=== PATIENT | female | born 1950 | race Caucasian/White ===

== ENCOUNTER 2017-01-12 09:02 | Day surgery (SDC) | payer MEDICARE, BC ==
[~2017-01-12 09:02] MED LIST: Acetaminophen TAB* 325 MG PO PRN; Buffered Lidocaine 0.9% SYRIN* 5 ML/SYR SYRINGE INTRADERM ONE
[2017-01-12] MEDS ORDERED: Midazolam* 1 MG/ML 5 ML VIAL (5 MG) ONE (10:29)
[2017-01-12 12:43] VITALS: BP 108/63
[2017-01-12] MEDS ORDERED: Povidone Iodine 5% OPTH* 30 ML BTL ONE (14:16)
[2017-01-12] MEDS ORDERED: Ketorolac 0.5% OPHTH (NF) 0.5 % 5 ML BTL ONE (14:16)
[2017-01-12] MEDS ORDERED: Phenylephrine 2.5% OPTH.SOL* 2 ML BTL ONE (14:16)
[2017-01-12] MEDS ORDERED: Proparacaine 0.5% OPHTH.SOL* 15 ML BTL ONE (14:16)
[2017-01-12] MEDS ORDERED: Neomycin/Polymy/Dex OPTH.SUSP* MAXITROL 0.1% 5 ML ONE (14:16)
[2017-01-12] MEDS ORDERED: Buffered Lidocaine 0.9% SYRIN* 5 ML/SYR SYRINGE ONE (14:16)
[2017-01-12] MEDS ORDERED: Lidocaine 1% MPF* 2 ML VIAL ONE (14:16)
[2017-01-12] MEDS ORDERED: acetaZOLAMIDE TAB* 250 MG ONE (14:16)
[2017-01-12] MEDS ORDERED: Lidocaine 2% EPI 1:200000 MPF* 20 ML VIAL ONE (14:16)
[2017-01-12] MEDS ORDERED: Cyclopentolate 1% OPTH.SOL* 2 ML BTL ONE (14:16)
--- NOTE | 2017-01-13 04:55 | OP ---
DATE OF OPERATION: 01/12/17 [facility] DATE OF : 52 SURGEON: Dejuan Moss M.D. PREOPERATIVE DIAGNOSIS: Cataract, left eye. POSTOPERATIVE DIAGNOSIS: Cataract, left eye. OPERATIVE PROCEDURE: Phacoemulsification, left eye, with IOL. DESCRIPTION OF PROCEDURE: The patient was brought to the operating room after being given 1/2% Alcaine with epinephrine drops in the preoperative area. The eye was prepped and draped in the usual sterile fashion. Sterile drape and eyelid speculum were placed. Again, topical 1/2% Alcaine with epinephrine was given. A paracentesis incision was made at the 3 o'clock position with the No.75 blade. Clear cornea incision 2.2 x 2.2-mm was created at the 6 o'clock position starting at the anterior limbus using the 2.2-mm keratome. The anterior chamber was irrigated with 0.4 mL of 1% non-preservative intracameral lidocaine and filled with DisCoVisc. A capsulorrhexis was completed using the cystotome and the Utrata forceps. Hydrodissection was performed with balanced salt solution. The lens nucleus was removed with the Phacoemulsification handpiece without incident. Cortex was removed with the irrigation-aspiration handpiece. The capsular bag was re-inflated using DisCoVisc and an SN60WF 27.5 implant was inserted with the shooter. The irrigation-aspiration handpiece was used to remove all residual DisCoVisc. The eye was refilled with balanced salt solution and the wound checked and found to be watertight. Topical Maxitrol drops were given. [id number]/[facility] #: [id number] [facility]
== END 2017-01-12 12:39 | disposition home or self-care (01) ==
LOC: OREAST 09:02
PROVIDERS: ATTEND Specialist
DX: H25.812 Combined forms of age-related cataract, left eye (principal); Z96.1 Presence of intraocular lens; H43.813 Vitreous degeneration, bilateral; Z79.82 Long term (current) use of aspirin; Z88.0 Allergy status to penicillin; E03.9 Hypothyroidism, unspecified; I73.00 Raynaud's syndrome without gangrene; M34.1 CR(E)ST syndrome; F17.210 Nicotine dependence, cigarettes, uncomplicated; D50.8 Other iron deficiency anemias; E78.4 Other hyperlipidemia; F41.1 Generalized anxiety disorder; R23.8 Other skin changes
CPT/HCPCS: A9270-GY; J2250; V2632

== ENCOUNTER 2017-10-13 12:44 | Emergency (ER) | payer MEDICARE, BC ==
[2017-10-13] MEDS ORDERED: NS 0.9% 1000 ML* 1,000 ML IV ONE ×2 (15:18→17:32)
--- NOTE | 2017-10-13 15:23 | ED ---
GI/ HPI - HPI Summary HPI Summary: This is scribe Elie Guadarrama documenting for attending Jose M Pritchett MD. This patient is a 67 year old F presenting to [facility] with a chief complaint of inability to eat or drink since 10/02/2017. Patient reports sporadic sharp abdominal pain (every 10-15 minutes), watery diarrhea, weakness, losing weight, nausea, and passing gas only once in the past 6 days. Patient denies vomiting. She has had a hernia in the past. I, Dr. Pritchett, personally performed the services described in this documentation as scribed in my presence, and it is both accurate and complete. - History of Current Complaint Chief Complaint: EDNauseaVomitDiarrh Time Seen by Provider: 10/13/17 15:13 Stated Complaint: ABD PAIN Hx Obtained From: Patient Onset/Duration: Started Days Ago - 10/02/2017 Timing: Intermittent - 10-15 minute episodes of pain Pain Intensity: 0 Pain Characteristics: Sharp Associated Signs and Symptoms: Positive: Weakness, Nausea, Diarrhea - watery, Other: - sporadic sharp abdominal pain (every 10-15 minutes), losing weight, and passing gas only once in the last 6 days. - Allergy/Home Medications Allergies/Adverse Reactions: Allergies Allergy/AdvReac Type Severity Reaction Status Date / Time Penicillins Allergy Rash And Verified 10/13/17 15:09 Itching Home Medications: Home Medications Atorvastatin* [Lipitor 40 MG*] 40 mg PO DAILY 10/13/17 [History Confirmed ] Beet Root 1000 Mg 1 cap PO BID 10/13/17 [History Confirmed 10/13/17] Cholecalciferol TAB* [Vitamin D TAB*] 1,000 unit PO DAILY 10/13/17 [History Confirmed 10/13/17] Diltiazem CD CAP* [Cardizem CD CAP*] 120 mg PO EVERY OTHER DAY 10/13/17 [ History Confirmed 10/13/17] Ferrous Sulfate TAB* 325 mg PO EVERY OTHER DAY 10/13/17 [History Confirmed 10/13] Ibuprofen TAB* [Motrin TAB* 600 MG] 600 mg PO TID PRN 10/13/17 [History Confirmed 10/13/17] Levothyroxine TAB* [Synthroid TAB*] 50 mcg PO DAILY 10/13/17 [History Confirmed 10/13/17] Magnesium Oxide [Magnesium] 250 mg PO DAILY 10/13/17 [History Confirmed 10/13/17 ] Metoprolol Succinate XL TAB* [Toprol XL TAB*] 25 mg PO DAILY 10/13/17 [History Confirmed 10/13/17] Mometasone Furoate [Elocon] 0.1 % TOPICAL TID PRN 10/13/17 [History Confirmed ] PMH/Surg Hx/FS Hx/Imm Hx Endocrine/Hematology History: Reports: Hx Thyroid Disease - HX OF PARTIAL THYROIDECTOMY, Hx Anemia - IRON INFUSION- STATES WILL HAVE ON 12/30/16 Denies: Hx Diabetes Cardiovascular History: Reports: Hx Peripheral Vascular Disease - STENTS PLACED TO BOTH GROINS-~5-6 YEARS AGO-DONE IN [place], Other Cardiovascular Problems/ Disorders - SVT-on meds Denies: Hx Hypertension - cardiac meds for Reynauds/CREST syndrome, Hx Pacemaker/ICD GI History: Reports: Hx Gastroesophageal Reflux Disease - HX OF, Other GI Disorders - gerd History: Denies: Hx Dialysis, Hx Renal Disease Musculoskeletal History: Reports: Hx Arthritis, Hx Rheumatoid Arthritis Denies: Hx Osteoporosis Sensory History: Reports: Hx Cataracts - BILATERAL, Hx Contacts or Glasses - INSTRUCTS GIVEN Denies: Hx Hearing Aid Opthamlomology History: Reports: Hx Cataracts - BILATERAL, Hx Contacts or Glasses - INSTRUCTS GIVEN Psychiatric History: Reports: Hx Anxiety - HX OF - PRN MEDICATION FOR - Cancer History Hx Chemotherapy: No Hx Radiation Therapy: No - Surgical History Surgery Procedure, Year, and Place: left elbow calcium build up removed 2005; stents to bilat iliac veins 05/2011; partial thyroidectomy "years ago". hernia repair Hx Anesthesia Reactions: Yes - NAUSEA AND VOMITING- WITH ELBOW SURGERY Infectious Disease History: No Infectious Disease History: Reports: Hx Hepatitis - HX OF IN THE 1969'S Denies: Traveled Outside the [place] in Last 30 Days - Family History Known Family History: Positive: Cardiac Disease - Father of [place] at 39, Other - Cancer - Social History Alcohol Use: None Substance Use Type: Reports: None Smoking Status (MU): Light Every Day Tobacco Smoker Type: Cigarettes Amount Used/How Often: 6-8 cig/day Have You Smoked in the Last Year: Yes Review of Systems Positive: Other - losing weight. Negative: Fever Positive: Abdominal Pain - intermittent sharp abdominal pain (lasting 10-15 minutes), Diarrhea - watery, Nausea, Other - Inability to eat or drink, passing gas only once in the past 6 days All Other Systems Reviewed And Are Negative: Yes Physical Exam - Summary Physical Exam Summary: VITAL SIGNS: Reviewed. GENERAL: Patient is a well-developed and nourished FEMALE who is lying comfortable in the stretcher. Patient is not in any acute respiratory distress. HEAD AND FACE: No signs of trauma. No ecchymosis, hematomas or skull depressions. No sinus tenderness. EYES: PERRLA, EOMI x 2, No injected conjunctiva, no nystagmus. EARS: Hearing grossly intact. Ear canals and tympanic membranes are within normal limits. MOUTH: Dry oral mucosa. NECK: Supple, trachea is midline, no adenopathy, no JVD, no carotid bruit, no c- spine tenderness, neck with full ROM. CHEST: Symmetric, no tenderness at palpation LUNGS: Clear to auscultation bilaterally. No wheezing or crackles. CVS: Regular rate and rhythm, S1 and S2 present, no murmurs or gallops appreciated. ABDOMEN: Soft, non-tender. Hyperactive abdominal sounds in upper and lower abdomen. EXTREMITIES: FROM in all major joints, no edema, no cyanosis or clubbing. NEURO: Alert and oriented x 3. No acute neurological deficits. Speech is normal and follows commands. SKIN: Dry and warm Triage Information Reviewed: Yes Vital Signs On Initial Exam: Initial Vitals Temp Pulse Resp BP Pulse Ox 99.3 F 97 18 140/72 99 10/13/17 13:05 10/13/17 13:05 10/13/17 13:05 10/13/17 13:05 10/13/17 13:05 Vital Signs Reviewed: Yes Diagnostics - Vital Signs Vital Signs Temp Pulse Resp BP Pulse Ox 10/13/17 15:01 80 17 100 10/13/17 14:59 80 17 123/78 100 10/13/17 14:28 21 129/67 10/13/17 13:05 99.3 F 97 18 140/72 99 - Laboratory Result Diagrams: 10/13/17 15:40 10/13/17 15:40 Lab Statement: Any lab studies that have been ordered have been reviewed, and results considered in the medical decision making process. - Radiology Abdomen X-Ray Radiology Interpretation Completed By: Radiologist - 16:07. NO EVIDENCE FOR ACUTE FINDING. ED Physician has reviewed this imaging report. - EKG No standard instances Cardiac Rate: NL - 69 BPM EKG Rhythm: Sinus Rhythm EKG Interpretation: 15:39. No ST elevation. Similar to EKG from 01/07/2013. GIGU Course/Dx - Course Assessment/Plan: This patient is a 67 year old F presenting to [facility] with a chief complaint of inability to eat or drink since 10/02/2017. Patient reports sporadic sharp abdominal pain (every 10-15 minutes), watery diarrhea, weakness, losing weight, nausea, and passing gas only once in the past 6 days. Patient denies vomiting. She has had a hernia in the past. Blood test results without any significant abnormality except for sodium of 134 potassium level of 3.3. CRP 49.2. Amylase is 17. Urinalysis shows some protein and ketones. Secondary to dehydration. Otherwise the urinalysis is contaminated. We will send for urine cultures. X-ray of the abdomen showed no acute pathology. In the ED course the patient was given IV fluids, and potassium chloride for the hypokalemia. Since the patient pain was resolved, I decided to do an abdominal pelvic CT. Abdominal pelvic CT impression: There is a mural thickening of both the stomach and the large bowel with the findings may be related to gastroenteritis and colitis. Therefore the patient was given prednisone to decrease inflammation, and she will be discharged home with follow-up with a GI doctor. Patient was given a prescription for prednisone for 4 days, [place] for the pain and Zofran for nausea vomiting. I discussed all the findings and test results with the patient. Patient was instructed to return to the emergency room immediately if any of the symptoms return or worsens. Plan of care was discussed with the patient and understands and agrees. All questions were answered at patient satisfaction. There were no further complaints or concerns. Lung exam before discharge: CTA B/L. Good air exchange. No wheezing or crackles heard. CVS: S1 and S2 present. No murmurs appreciated. Patient is alert and oriented x 3. Patient is hemodynamically stable. Patient will be discharged home with follow up PCP in the next 2-3 days - Diagnoses Differential Diagnoses - Female: Constipation, Colitis, Diverticulitis, Diarrhea Provider Diagnoses: Colitis Discharge - Sign-Out/Discharge Documenting (check all that apply): Patient Departure - D/C - Discharge Plan Condition: Stable Disposition: TRANS [facility] OF CARE FAC Prescriptions: Hydrocodone/Acetaminophen [[place] 5-325 mg] 1 tab PO Q6H PRN #12 tab MDD 4 PRN Reason: Pain Ondansetron ODT TAB* [Zofran 4 MG Odt TAB*] 4 mg PO Q8H PRN #10 tab.odt PRN Reason: Vomiting predniSONE [Prednisone 20 MG TAB] 20 mg PO DAILY #4 tablet Patient Education Materials: Colitis (ED) Referrals: Gio Lezama MD [Primary Care Provider] - 3 Days Additional Instructions: RETURN TO THE EMERGENCY DEPARTMENT FOR CHANGING OR WORSENING SYMPTOMS.
[2017-10-13 16:04] LABS: ABS Basophils 0 10^3/ul (0-0.2); ABS Eosinophils 0.1 10^3/ul (0-0.6); ABS Lymphocytes 0.8 10^3/ul (1.0-4.8); ABS Monocytes 0.9 10^3/ul (0-0.8); ABS Neutrophils 3.1 10^3/ul (1.5-7.7); ABS Nucleated RBC 0 10^3/ul; Eosinophil % 1.4 % (0-6); Hematocrit 37 % (35-47); Hemoglobin 12.5 g/dl (12.0-16.0); Mean Corpuscular HGB Conc 33 g/dl (31-36); Mean Corpuscular Hemoglobin 32 pg (27-31); Mean Corpuscular Volume 95 fL (80-97); Mean Platelet Volume 7.3 um3 (7.4-10.4); Nucleated Red Blood Cells % 0; Platelet Count 236 10^3/ul (150-450); Red Blood Count 3.94 10^6/ul (4.00-5.40); Red Cell Distribution Width 14 % (10.5-15); White Blood Count 4.9 10^3/ul (3.5-10.8)
--- NOTE | 2017-10-13 16:10 | RAD ---
INDICATION: Abdominal pain. COMPARISON: Comparison is made with a prior CT of the abdomen and pelvis from January 28, 2016. TECHNIQUE: Supine and upright views of the abdomen were obtained. FINDINGS: The small bowel and colon appear nondistended. No free intraperitoneal air is seen. There appear to be vascular stents within the common iliac arteries. IMPRESSION: NO EVIDENCE FOR ACUTE FINDING.
[2017-10-13 16:25] LABS: EGFR Non-African American 72.8 (>60)
[2017-10-13 16:52] LABS: Urine Appearance Clear; Urine Blood 1+ (Negative); Urine Color Yellow; Urine Ketones 1+ (Negative); Urine Protein 1+(30 mg/dL) (Negative); Urine Red Blood Cell 3+(>10/hpf) (Absent); Urine Specific Gravity 1.021 (1.010-1.030); Urine Urobilinogen Negative (Negative); Urine White Blood Cell Trace(0-5/hpf) (Absent)
[2017-10-13] MEDS ORDERED: Potassium Chlor TAB* 20 MEQ TAB.ER PO ONE (17:24)
[2017-10-13] MEDS ORDERED: Iohexol 300* (CONTRAST) 10 ML SDV IV ONE (17:47)
--- NOTE | 2017-10-13 19:57 | RAD ---
INDICATION: Watery diarrhea. Weakness. COMPARISON: October 13, 2017 TECHNIQUE: Axial source images were obtained from the hemidiaphragms to the symphysis pubis following administration of oral and intravenous contrast. 65 mL Omnipaque 300 was utilized. Coronal and sagittal reconstructed images were acquired. Lung bases: The lung bases are clear. Liver: The liver is normal in size. There are no masses. There is no ductal dilatation. Gallbladder: There are no calcified gallstones. There is no evidence of wall thickening or pericholecystic fluid. Spleen: The spleen is normal in size. There are no masses. Pancreas: There is no focal pancreatic mass or ductal dilatation. Adrenal glands: There is no evidence of adrenal mass. Kidneys: The kidneys are normal in size and position. There are prompt nephrograms and there is prompt excretion bilaterally. There are no renal parenchymal masses. There is no evidence of nephrolithiasis. Adenopathy: There is no evidence of adenopathy by size criteria. Fluid collections: There are no free or localized fluid collections. Vessels:There are extensive atherosclerotic changes involving the aorta and iliac vessels. There is no focal aneurysm. The IVC appears normal. GI tract: There is a small hiatal hernia. There is diffuse mural thickening of the stomach. This could be related to gastritis. The small bowel is unremarkable. There is diffuse mural thickening of the colon with a small amount of perienteric stranding. The finding suggests a diffuse colitis. There are no findings of obstruction or perforation. Pelvic organs: The uterus and adnexa appear normal Bladder: There are no bladder masses. Abdominal and pelvic soft tissues: The extraperitoneal abdominal and pelvic soft tissues appear normal.. Osseous structures: There are no acute osseous findings. Other: None IMPRESSION: THERE IS MURAL THICKENING OF BOTH THE STOMACH AND THE LARGE BOWEL. THE FINDINGS MAY BE RELATED TO GASTRITIS/COLITIS.
[2017-10-13] MEDS ORDERED: predniSONE TAB* 20 MG PO ONE (20:05)
[2017-10-13 20:32] VITALS: BP 118/99
--- NOTE | 2017-10-15 07:54 | ED ---
Progress - Progress Note Progress Note: Patient's stool culture is negative for Shiga toxins, negative for C. difficile and positive by amino assay. Patient was diagnosed with colitis, this correlates with diagnosis. No further action at this time. Course/Dx - Diagnoses Provider Diagnoses: Colitis Discharge - Sign-Out/Discharge Documenting (check all that apply): Post-Discharge Follow Up - Discharge Plan Condition: Stable Disposition: TRANS HIGHER LVL OF CARE FAC Prescriptions: Hydrocodone/Acetaminophen [[place] 5-325 mg] 1 tab PO Q6H PRN #12 tab MDD 4 PRN Reason: Pain Ondansetron ODT TAB* [Zofran 4 MG Odt TAB*] 4 mg PO Q8H PRN #10 tab.odt PRN Reason: Vomiting predniSONE [Prednisone 20 MG TAB] 20 mg PO DAILY #4 tablet Patient Education Materials: Colitis (ED) Referrals: Gio Lezama MD [Primary Care Provider] - 3 Days Additional Instructions: RETURN TO THE EMERGENCY DEPARTMENT FOR CHANGING OR WORSENING SYMPTOMS. - Billing Disposition and Condition Condition: STABLE Disposition: Trans Higher Lvl of Care Fac
== END 2017-10-13 20:33 | disposition short-term general hospital (02) ==
LOC: ED 12:44
DX: K52.9 Noninfective gastroenteritis and colitis, unspecified (principal); R53.1 Weakness; Z88.0 Allergy status to penicillin; F17.210 Nicotine dependence, cigarettes, uncomplicated
CPT/HCPCS: 36415; 74019; 74177; 80053; 81003; 81015; 82150; 83605; 83630; 83690; 83880; 84484; 85025; 86140; 87045; 87046; 87077; 87086; 87493; 87899; 93005; 96360; 96361; 99283; A9270-GY; J7512; Q9967

== ENCOUNTER 2021-12-26 07:47 | Inpatient (IN) ==
[2021-12-26] MEDS ORDERED: Adenosine 3 MG/ML 2 ml VIAL (6 mg) IV PUSH ONE ×2 (08:07→10:04)
[2021-12-26] MEDS ORDERED: NS 0.9% 1000 ml BAG 1,000 ML IV ONE ×2 (08:07→09:32)
[2021-12-26 09:05] LABS: ABS Eosinophils 0.3 10^3/ul (0-0.6); ABS Monocytes 0.4 10^3/ul (0-0.8); ABS Neutrophils 3.8 10^3/ul (1.5-7.7); Eosinophil % 5.3 %; Hematocrit 36 % (35-47); Hemoglobin 11.7 g/dL (12.0-16.0); Lymphocyte % 18.8 %; Mean Corpuscular HGB Conc 33 g/dL (31-36); Mean Corpuscular Hemoglobin 32 pg (27-31); Mean Corpuscular Volume 99 fL (80-97); Mean Platelet Volume 8.8 fL (7.4-10.4); Platelet Count 241 10^3/uL (150-450); Red Blood Count 3.62 10^6 /uL (3.70-4.87); Red Cell Distribution Width 14 % (10-15); White Blood Count 5.6 10^3/uL (3.5-10.8)
[2021-12-26 09:37] LABS: INR 1.15 (0.89-1.11)
[2021-12-26 09:40] LABS: Albumin 3.6 g/dL (3.2-5.2); Albumin/Globulin Ratio 1.7 (1-3); Calcium 7.4 mg/dL (8.6-10.3); Globulin 2.1 g/dL (2-4); Total Bilirubin 0.3 mg/dL (0.2-1.0); Total Protein 5.7 g/dL (6.4-8.9); eGFR CKD-EPI 82.9 (>60)
[2021-12-26 09:44] LABS: Magnesium 0.7 mg/dL (1.9-2.7)
[2021-12-26] MEDS ORDERED: Magnesium Sulfate IV 3 GM in NS 0.9% 100 ml BAG 100 ML IVPB ONE ×2 (09:44→15:40)
[2021-12-26 09:53] LABS: TSH Ultra Thyroid Stim Horm 2.11 mcIU/mL (0.34-5.60)
[2021-12-26] MEDS ORDERED: KCL 20 MEQ/100 ML IVPREMIX 20 MEQ/100 ML BAG IV ONE (10:04)
[2021-12-26] MEDS ORDERED: Potassium Chlor 20 meq TAB.ER PO ONE ×2 (10:14→15:41)
[2021-12-26] MEDS ORDERED: Acetaminophen IV 1 GM/100ML 1,000 MG/100 ML BAG IV ONE (10:20)
[2021-12-26 10:40] LABS: High Sensitivity Troponin 1 Hr 13 pg/mL (<15)
[2021-12-26 16:31] LABS: Blood Urea Nitrogen 9 mg/dL (6-24); CO2 Carbon Dioxide 26 mmol/L (22-32); Calcium 7.2 mg/dL (8.6-10.3); Chloride 106 mmol/L (101-111); Glucose 75 mg/dL (70-100); Magnesium 2.1 mg/dL (1.9-2.7); Sodium 139 mmol/L (135-145); eGFR CKD-EPI 95.4 (>60)
[2021-12-26 16:36] LABS: Anion Gap 7 mmol/L (2-11)
[2021-12-26 18:04] LABS: Phosphorus 3.2 mg/dL (2.5-5.0); Potassium Redraw 4.7 mmol/L (3.5-5.0)
[2021-12-27 06:31] LABS: ABS Eosinophils 0.4 10^3/ul (0-0.6); ABS Lymphocytes 1.2 10^3/ul (1.0-4.8); ABS Monocytes 0.5 10^3/ul (0-0.8); ABS Neutrophils 4.3 10^3/ul (1.5-7.7); Eosinophil % 6.2 %; Hematocrit 36 % (35-47); Hemoglobin 11.6 g/dL (12.0-16.0); Lymphocyte % 18.6 %; Mean Corpuscular HGB Conc 33 g/dL (31-36); Mean Corpuscular Hemoglobin 32 pg (27-31); Mean Corpuscular Volume 99 fL (80-97); Mean Platelet Volume 8.8 fL (7.4-10.4); Platelet Count 255 10^3/uL (150-450); Red Blood Count 3.61 10^6 /uL (3.70-4.87); Red Cell Distribution Width 14 % (10-15); White Blood Count 6.4 10^3/uL (3.5-10.8)
[2021-12-27 07:09] LABS: Blood Urea Nitrogen 8 mg/dL (6-24); CO2 Carbon Dioxide 25 mmol/L (22-32); Chloride 105 mmol/L (101-111); Glucose 68 mg/dL (70-100); Magnesium 1.7 mg/dL (1.9-2.7); Sodium 137 mmol/L (135-145)
[2021-12-27 07:10] LABS: Anion Gap 7 mmol/L (2-11)
[2021-12-27 08:26] LABS: Cholesterol 141 mg/dL; HDL Cholesterol 52.9 mg/dL; LDL Cholesterol 74 mg/dL; Total Iron Binding Capacity 239 mcg/dL (250-450); Transferrin 171 mg/dL (203-362); Triglycerides 72 mg/dL
[2021-12-27] MEDS ORDERED: Magnesium Sulfate IV 3 GM in NS 0.9% 100 ml BAG 100 ML IVPB ONE (08:30)
[2021-12-27 08:47] LABS: Ferritin 240.4 ng/mL (11-307)
[2021-12-27] MEDS ORDERED: Omeprazole 20 mg CAP (NF) PO SCH (09:00)
[2021-12-27 11:04] LABS: Potassium Redraw 4.6 mmol/L (3.5-5.0)
[2021-12-27 13:56] VITALS: BP 120/94
== END 2021-12-27 13:56 | disposition home or self-care (01) | DRG 310 ==
LOC: ED 07:47 → EDHOLD 10:38 → SUATTDRO 10:38 → EDHOLD 12-27 13:55
PROVIDERS: ADMIT Internal Medicine Critical Care Medicine; ATTEND Internal Medicine